=== PATIENT | male | born 1990 | race Caucasian/White ===

== ENCOUNTER 2016-04-27 14:48 | Emergency (ER) | payer OTHER ==
[~2016-04-27] VITALS: Ht 167.6 cm; Wt 90.7 kg
[~2016-04-27 14:48] MED LIST: HYDR-3812 PO
--- OUTSIDE RECORDS SUMMARY | 2016-04-27 14:53 | XMS REPORT | Continuity of Care Document ---
Author Author [facility] Organization [facility] Address Unknown Phone Unavailable Allergies Active Description Code Type Severity Reaction Onset Reported/Identified Relationship to Patient Clinical Status Yes No Known Drug Allergies [id number] Drug Allergy Unknown N/ A 11/29/2014 Medications Problems Date Dx Coded Attending Type Code Diagnosis Diagnosed By 11/29/2014 MALCOLM ZHANG, ASH Stein Ot 592.1 11/29/2014 ASH FOWLER MD Ot 789.09 Procedures Results Encounters ACCT No. Visit Date/Time Discharge Status Pt. Type Provider Facility Loc./Unit Complaint [id number] 11/29/2014 08:47:00 2014 10:27:00 DIS Emergency ASH FOWLER MD [facility] ER
--- NOTE | 2016-04-27 15:21 | ED Integumentary General ---
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 Source: patient Exam Limitations: no limitations History of Present Illness Time seen by provider: 14:59 Initial Comments 26-year-old male patient presents to the emergency department complaints of the allergic reaction. Patient states he was washing dishes at home for approximately 20-25 minutes before he began having itching. Patient soon after noticed he was feeling a lump in his throat. Denies any shortness of air, difficulty swallowing. Feels like his lips are starting to swell. Patient denies changes in the soap, laundry detergent, soap, lotions, foods. Patient drove self here to the ED. Timing/Duration: getting worse, other (45 min [employer]) Location: generalized Possible Cause: no cause identified (possible reaction to dish soap.) Modifying Factors: worse with scratching Associated Symptoms: No blisters, No change in skin texture, No edema, No fever , No flushing, headacheNo nasal congestion, No petechiae, rash sore throatNo swelling/mass/lumps Allergies and Home Medications Allergies Coded Allergies: No Known Drug Allergies (Unverified , 11/29/14) Home Medications Albuterol Sulfate 6.7 Gm Hfa.aer.ad #1 2 PUFF IH Q4H PRN PRN SHORTNESS OF BREATH Prescribed by: THUY TORIBIO on 04/27/161907 Epinephrine 0.3 Mg/0.3 Ml Auto.injct #1 0.3 MG IJ UD PRN PRN SHORTNESS OF BREATH Prescribed by: THUY TORIBIO on 04/27/161907 Famotidine 20 Mg Tablet #30 20 MG PO BID Prescribed by: THUY TORIBIO on 04/27/161907 Prednisone 20 Mg Tab #8 40 MG PO DAILY Prescribed by: THUY TORIBIO on 04/27/161907 Constitutional: No chills, No diaphoresis, No dizziness, No fever, No malaise EENTM: mouth swelling other (swelling of the eye lids.) throat swelling ( feels a lump in his throat.)No ear discharge, No ear pain, No eye pain, No hoarseness, No mouth pain, No nose congestion, No nose pain, No tearing, No throat pain Respiratory: No cough, No short of breath, No stridor, No wheezing Cardiovascular: No chest pain, No palpitations Gastrointestinal: No abdominal pain, No nausea, No vomiting Genitourinary: no symptoms reported Musculoskeletal: no symptoms reported Skin: see HPINo change in color, pruritus rash Psychiatric/Neurological: HeadacheDenies Numbness, Denies Paresthesia, Denies Seizure, Denies Tingling, Denies Weakness All Other Systems Reviewed Negative Unless Noted: Yes (Negative excepted noted.) Past Hhxxmqd-Bhsjrm-Gwxrda Hx Patient Social History Alcohol Use: Rarely Uses Recreational Drug Use: No Smoking Status: Never a Smoker Recent Foreign Travel: No Contact w/Someone Who Travel: No Recent Infectious Disease Expo: No Recent Hopitalizations: No Seasonal Allergies Seasonal Allergies: No Surgeries HX Surgeries: Yes (PLASTIC SURG AGE 1) Respiratory Hx Respiratory Disorders: No Cardiovascular Hx Cardiac Disorders: Yes Cardiac Disorders: Hypertension Neurological Hx Neurological Disorders: No Genitourinary Hx Genitourinary Disorders: Yes Genitourinary Disorders: Kidney Stones Gastrointestinal Hx Gastrointestinal Disorders: No Musculoskeletal Hx Musculoskeletal Disorders: No Endocrine Hx Endocrine Disorders: No HEENT HX ENT Disorders: No Cancer Hx Cancer: No Psychosocial Hx Psychiatric Problems: No Integumentary HX Skin/Integumentary Disorder: No Blood Transfusions Hx Blood Disorders: No Reviewed Nursing Assessment Reviewed/Agree w Nursing PMH: Yes Family Medical History Significant Family History: No Pertinent Family Hx Physical Exam Vital Signs Vital Sign - Last 12Hours 04/27/16 14:56 Temp 97.4 Pulse 126 Resp 18 B/P 116/88 Pulse Ox 95 Capillary Refill : Less Than 3 Seconds General Appearance: WD/WN other (Patient initially not in distress, however within 3-5 minutes patient became very dizzy, pale, and in distress.) HEENT: PERRL/EOMI TMs normal pharynx normal (no evidence of pharyngeal or tongue swelling.) other (hives/ rash of the face with swelling of the eye lids and lips.) Neck: non-tender full range of motion supple other (hives noted.) Cardiovascular: no edema no murmur tachycardia other (peripheral pulses thready.) Respiratory: lungs clear normal breath sounds no respiratory distress other ( urticarial rash of the chest noted.) Gastrointestinal: normal bowel sounds non tender softNo distended, other ( urticarial rash noted of the abdomen.) Back: other (urticarial rash.) Extremities: non-tender normal capillary refill other (generalized urticarial rash of all extremities) 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 no motor/sensory deficits alert oriented x 3 other (anxious) Skin: warm/dry rash Skin Problem Location: generalized Skin Problem Character: erythema, rash, swelling (swelling of the bilateral eyelids and lips), urticarial Progress/Results/Core Measures Results/Orders My Orders Orders-THUY TORIBIO Diphenhydramine Injection (Benadryl Inje (04/27/16 16:30) Methylprednisolone Sod Succ (Solu-Medrol (04/27/16 16:30) Famotidine Injection (Pepcid Injection) (04/27/16 16:30) Epinephrine 1 Mg Injection (Adrenalin I (04/27/16 16:30) Prednisone Tablet (Deltasone Tablet) (04/27/16 19:15) Medications Given in ED Current Medications Medications Dose Ordered Sig/Fili Route Start Time Stop Time Status Last Admin Dose Admin Diphenhydramine HCl 50 mg ONCE ONCE IV 04/27/16 16:30 04/27/16 16:31 DC 04/27/16 14:50 50 MG Epinephrine HCl 0.3 mg ONCE ONCE IM 04/27/16 16:30 04/27/16 16:31 DC 04/27/16 14:50 0.3 MG Famotidine 20 mg ONCE ONCE IVP 04/27/16 16:30 04/27/16 16:31 DC 04/27/16 14:50 20 MG Methylprednisolone Sodium Succinate 125 mg ONCE ONCE IVP 04/27/16 16:30 04/27/16 16:31 DC 04/27/16 14:50 125 MG Prednisone 40 mg ONCE ONCE PO 04/27/16 19:15 04/27/16 19:17 DC 04/27/16 19:20 40 MG Vital Signs/I&O Vital Sign - Last 12Hours 04/27/16 04/27/16 14:56 19:22 Temp 97.4 97.4 Pulse 126 86 Resp 18 18 B/P 116/88 Pulse Ox 95 97 Blood Pressure Mean: 97 Departure Communication Progress Notes Patient seen and evaluated. During the initial exam patient was noted to have increased heart rate and SaO2 noted to be trending down to 90 percent. Patient was given Benadryl, Pepcid, Solu-Medrol, and epinephrine. Patient quickly showed improvement in rash, heart rate, and SaO2. Patient was monitored and re- evaluated frequently throughout the visit with continued improvement in all symptoms. Patient was observed for 4 hours. Patient at the time of pending sale to [facility] denies any shortness of air, difficulty swallowing, swelling, or rash. Reports headache is completely resolved. Patient is alert and oriented 3, no acute distress. Lungs clear to auscultation, cardiovascular regular rate and rhythm. Proceed with discharge to home as patient shown no recurrent symptoms. All return precautions were discussed with the patient as described in the discharge instructions of this report. Patient voices understanding and agrees with the treatment plan. Patient case was discussed with Dr. Méndez, he agrees with the plan of care. Impression Impression: Primary Impression: Anaphylactic reaction Qualified Code: T78.2XXA - Anaphylactic shock, unspecified, initial encounter Disposition: HOME, SELF-CARE Condition: Improved Departure-Patient Inst. Decision time for Depature: 19:02 Referrals: NO,LOCAL PHYSICIAN (PCP/Family) Primary Care Physician Patient Instructions: Anaphylaxis (DC) Add. Discharge Instructions: All discharge instructions reviewed with patient and/or family. Voiced understanding. medications as instructed. Zyrtec, Claritin, or Neeta zhdq-cpp-nvkbvon as directed for symptoms. Benadryl thwg-syx-cpimjzd for breakthrough symptoms. Avoid using the soap. Follow-up with your family practitioner for recheck this week, call tomorrow morning for appointment time. Return to the emergency department immediately for worsened shortness of air, swelling, rash, numbness, weakness, headache, vomiting, swelling of the face/ lips/tongue/throat, difficulty swallowing, or any other concerns. Scripts Epinephrine (Epipen 2-Dario)0.3 Mg/0.3 Ml Auto.injct0.3 Mg IJ UD PRN SHORTNESS OF BREATH #1 PACKET Ref 1 Prov:THUY TORIBIO 04/27/16 Famotidine (Pepcid)20 Mg Aqxzsu51 Mg PO BID #30 TAB Ref 0 Prov:THUY TORIBIO 04/27/16 Albuterol Sulfate (Proventil Hfa)6.7 Gm Hfa.aer.ad2 Puff IH Q4H PRN SHORTNESS OF BREATH #1 EACH Prov:THUY TORIBIO 04/27/16 Prednisone 20 Mg Tab40 Mg PO DAILY #8 TAB Ref 0 Prov:THUY TORIBIO 04/27/16 Work/School Note: Local Medical Staff Listing, Work Release Form Date Seen in the Emergency Department: Apr 27, 2016 Return to Work: Apr 29, 2016 THUY TORIBIO Apr 27, 2016 15:21
[2016-04-27] MEDS ORDERED: methylPREDNISolone 125 MG (Solu-MEDROL) VIAL IVP ONE (16:30)
[2016-04-27] MEDS ORDERED: EPINEPHrine INJECTION 1 MG/ML AMP IM ONE (16:30)
[2016-04-27] MEDS ORDERED: FAMOTIDINE 20MG/2ML IV (PEPCID) IVP ONE (16:30)
[2016-04-27] MEDS ORDERED: diphenhydrAMINE 50 MG/ML INJ (BENADRYL) IV ONE (16:30)
[2016-04-27] MEDS ORDERED: RT-ALBUINH IH (19:08)
[2016-04-27] MEDS ORDERED: PRD20T PO (19:08)
[2016-04-27] MEDS ORDERED: FAMO-119 PO (19:08)
[2016-04-27] MEDS ORDERED: EPIN0.3P3 IJ (19:08)
[2016-04-27] MEDS ORDERED: predniSONE 20 MG TAB PO ONE (19:15)
[2016-04-27 19:22] VITALS: BP 123/76
== END 2016-04-27 19:22 | disposition home or self-care (01) ==
LOC: EDUNIT# 14:48 → ER 14:50
DX: T78.2XXA Anaphylactic shock, unspecified, initial encounter (principal)
CPT/HCPCS: 96372; 96374; 96375

== ENCOUNTER 2019-10-24 21:15 | Emergency (ER) | payer OTHER ==
[~2019-10-24] VITALS: Ht 167.7 cm; Wt 95.2 kg
[~2019-10-24 21:15] MED LIST changes: +ACHD5005 PO; +EPIN0.3P3 IJ; +FAMO-119 PO; -HYDR-3812 PO; +PRD20T PO; +RT-ALBUINH IH
--- NOTE | 2019-10-24 21:36 | ED Back Pain ---
General Chief Complaint: Back Problems Stated Complaint: L SIDE LOWER BACK PAIN Source of Information: Patient Exam Limitations: No Limitations History of Present Illness Date Seen by Provider: Oct 24, 2019 Time Seen by Provider: 21:35 Initial Comments To ER with left flank pain 2 days. Suspected kidney stone as he's had these before and this feels similar. No fever no chills. The pain radiates to the left testicle. He was seen at [facility] urgent care on Thursday at the onset of this illness and given a shot of Toradol. He felt better yesterday. Location: Other Timing/Duration: 1-2 Days Severity: Moderate Associated Symptoms: lower back pain Allergies and Home Medications Allergies Coded Allergies: No Known Drug Allergies (Unverified , 11/29/14) Home Medications Epinephrine 0.3 Mg/0.3 Ml Auto.injct, 0.3 MG IJ UD PRN for SHORTNESS OF BREATH Prescribed by: THUY TORIBIO on 04/27/161907 Famotidine 20 Mg Tablet, 20 MG PO BID Prescribed by: THUY TORIBIO on 04/27/161907 Prednisone 20 Mg Tab, 40 MG PO DAILY Prescribed by: THUY TORIBIO on 04/27/161907 Patient Home Medication List Home Medication List Reviewed: Yes Review of Systems Constitutional: see HPI EENTM: see HPI Respiratory: no symptoms reported Cardiovascular: no symptoms reported Genitourinary: see HPI Musculoskeletal: no symptoms reported Skin: no symptoms reported Psychiatric/Neurological: No Symptoms Reported Past Tixdvor-Uncocx-Mdynhc Hx Patient Social History Recent Foreign Travel: No Contact w/Someone Who Travel: No Recent Hopitalizations: No Seasonal Allergies Seasonal Allergies: No Past Medical History Hypertension Kidney Stones Family Medical History No Pertinent Family Hx Physical Exam Vital Signs Vital Signs - First Documented 10/24/19 21:25 Temp 36.2 Pulse 81 Resp 18 B/P (MAP) 139/90 (106) Pulse Ox 96 O2 Delivery Room Air Capillary Refill : Height, Weight, BMI Height: 5'6" Weight: 200lbs. oz. 90.342765tz; 32.28 BMI Method:Stated General Appearance: WD/WN, Mild Distress Neck: Full Range of Motion, Normal Inspection Respiratory: No Accessory Muscle Use, No Respiratory Distress Gastrointestinal: Normal Bowel Sounds, Non Tender, Soft Extremity: Normal Capillary Refill, Normal Inspection Neurologic/Psychiatric: Alert, Oriented x3 Skin: Normal Color, Warm/Dry Progress/Results/Core Measures Results/Orders Lab Results Laboratory Tests Test 10/24/19 21:22 Range/Units White Blood Count 9.4 4.3-11.0 10^3/uL Red Blood Count 5.02 4.35-5.85 10^6/uL Hemoglobin 15.3 13.3-17.7 G/DL Hematocrit 43 40-54 % Mean Corpuscular Volume 86 80-99 FL Mean Corpuscular Hemoglobin 31 25-34 PG Mean Corpuscular Hemoglobin Concent 36 32-36 G/DL Red Cell Distribution Width 13.5 10.0-14.5 % Platelet Count 232 130-400 10^3/uL Mean Platelet Volume 9.8 7.4-10.4 FL Neutrophils (%) (Auto) 40 L 42-75 % Lymphocytes (%) (Auto) 48 H 12-44 % Monocytes (%) (Auto) 10 0-12 % Eosinophils (%) (Auto) 2 0-10 % Basophils (%) (Auto) 0 0-10 % Neutrophils # (Auto) 3.7 1.8-7.8 X 10^3 Lymphocytes # (Auto) 4.5 H 1.0-4.0 X 10^3 Monocytes # (Auto) 0.9 0.0-1.0 X 10^3 Eosinophils # (Auto) 0.2 0.0-0.3 10^3/uL Basophils # (Auto) 0.0 0.0-0.1 10^3/uL Urine Color YELLOW Urine Clarity CLEAR Urine pH 6.0 5-9 Urine Specific [place] 1.025 H 1.016-1.022 Urine Protein NEGATIVE NEGATIVE Urine Glucose (UA) NEGATIVE NEGATIVE Urine Ketones NEGATIVE NEGATIVE Urine Nitrite NEGATIVE NEGATIVE Urine Bilirubin NEGATIVE NEGATIVE Urine Urobilinogen 0.2 < = 1.0 MG/DL Urine Leukocyte Esterase TRACE H NEGATIVE Urine RBC (Auto) 3+ H NEGATIVE Urine RBC 50-100 H /HPF Urine WBC 2-5 /HPF Urine Crystals NONE /LPF Urine Bacteria TRACE /HPF Urine Casts NONE /LPF Urine Mucus NEGATIVE /LPF Urine Culture Indicated NO Sodium Level 139 135-145 MMOL/L Potassium Level 4.1 3.6-5.0 MMOL/L Chloride Level 109 H 98-107 MMOL/L Carbon Dioxide Level 20 L 21-32 MMOL/L Anion Gap 10 5-14 MMOL/L Blood Urea Nitrogen 16 7-18 MG/DL Creatinine 0.95 0.60-1.30 MG/DL Estimat Glomerular Filtration Rate > 60 BUN/Creatinine Ratio 17 Glucose Level 103 70-105 MG/DL Calcium Level 9.5 8.5-10.1 MG/DL My Orders Orders - RYAN WATSON SENIOR 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[employer]ICAL DESIGN ENGINEER Cbc With Automated Diff (10/24/19 21:31) Basic Metabolic Panel (10/24/19 21:31) Ua Culture If Indicated (10/24/19 21:31) Abdomen/Kub 1view (10/24/19 21:31) Ct Abd/Pelvis Wo(Kidney Stone) (10/24/19 21:31) Ed Iv/Invasive Line Start (10/24/19 21:31) Ns Iv 1000 Ml (Sodium Chloride 0.9%) (10/24/19 21:45) Ketorolac Injection (Toradol Injection) (10/24/19 21:45) Fentanyl Injection (Sublimaze Injection (10/24/19 21:45) Rx-Hydrocodone/Apap 5-325 Mg (Rx-Vicodin (10/24/19 22:15) Medications Given in ED Current Medications Medications Dose Ordered Sig/Fili Route Start Time Stop Time Status Last Admin Dose Admin Fentanyl Citrate 50 mcg ONCE ONCE IVP 10/24/19 21:45 10/24/19 21:46 DC 10/24/19 21:42 50 MCG Ketorolac Tromethamine 15 mg ONCE ONCE IVP 10/24/19 21:45 10/24/19 21:46 DC 10/24/19 21:42 15 MG Vital Signs/I&O 10/24/19 21:25 Temp 36.2 Pulse 81 Resp 18 B/P (MAP) 139/90 (106) Pulse Ox 96 O2 Delivery Room Air Departure Impression Primary Impression: Left ureteral stone Disposition: HOME, SELF-CARE Condition: Stable Departure-Patient Inst. Decision time for Depature: 22:05 Referrals: NO,LOCAL PHYSICIAN (PCP) Primary Care Physician KIARRA GONZALEZ MD Patient Instructions: Kidney Stones in Adults Add. Discharge Instructions: 1. Follow-up with Dr. Gonzalez. Return to ER for any concerns such as fevers or intolerable pain. Take the pain medication as prescribed in addition to ibuprofen every 8 hours. Increase your fluid intake. All discharge instructions reviewed with patient and/or family. Voiced understanding. Scripts Sulfamethoxazole/Trimethoprim (Bactrim Ds Tablet) 1 Each Tablet 1 EACH PO BID PRN for PAIN-MODERATE (5-7), #10 TAB Prov: RYAN WATSON APRN 10/24/19 Work/School Note: Work Release Form Date Seen in the Emergency Department: Oct 24, 2019 Return to Work: Oct 26, 2019 RYAN WATSON APRN Oct 24, 2019 21:36
[2019-10-24 21:37] LABS: BILIRUBIN,URINE NEGATIVE (NEGATIVE); CLARITY,URINE CLEAR; COLOR,URINE YELLOW; GLUCOSE, URINE (UA) NEGATIVE (NEGATIVE); KETONES,URINE NEGATIVE (NEGATIVE); LEUKOCYTE ESTERASE ,URINE TRACE (NEGATIVE); NITRITE,URINE NEGATIVE (NEGATIVE); PROTEIN,URINE NEGATIVE (NEGATIVE)
[2019-10-24 21:39] LABS: BASOPHILS % (AUTO) 0 % (0-10); EOSINOPHILS # (AUTO) 0.2 10^3/uL (0.0-0.3); EOSINOPHILS % (AUTO) 2 % (0-10); HEMATOCRIT 43 % (40-54); HEMOGLOBIN 15.3 G/DL (13.3-17.7); LYMPHOCYTES # (AUTO) 4.5 X 10^3 (1.0-4.0); LYMPHOCYTES % (AUTO) 48 % (12-44); MEAN CORPUSCULAR HEMOGLOBIN 31 PG (25-34); MEAN CORPUSCULAR HGB CONC 36 G/DL (32-36); MEAN CORPUSCULAR VOLUME 86 FL (80-99); MEAN PLATELET VOLUME 9.8 FL (7.4-10.4); MONOCYTES # (AUTO) 0.9 X 10^3 (0.0-1.0); MONOCYTES % (AUTO) 10 % (0-12); NEUTROPHILS # (AUTO) 3.7 X 10^3 (1.8-7.8); NEUTROPHILS % (AUTO) 40 % (42-75); PLATELET COUNT 232 10^3/uL (130-400); RED CELL DISTRIBUTION WIDTH 13.5 % (10.0-14.5); WHITE BLOOD COUNT 9.4 10^3/uL (4.3-11.0)
[2019-10-24] MEDS ORDERED: fentaNYL INJECTION 100 MCG/2 ML AMP IVP ONE (21:45)
[2019-10-24] MEDS ORDERED: KETOROLAC 30 MG/ML VIAL IVP ONE (21:45)
[2019-10-24] MEDS ORDERED: NS IV 1000 ML 1,000 ML IV SCH (21:45)
[2019-10-24 21:55] LABS: BUN/CREATININE RATIO 17; CALCIUM 9.5 MG/DL (8.5-10.1); CARBON DIOXIDE 20 MMOL/L (21-32); CHLORIDE 109 MMOL/L (98-107); CREATININE SERUM 0.95 MG/DL (0.60-1.30); GFR ESTIMATED > 60; GLUCOSE 103 MG/DL (70-105); POTASSIUM 4.1 MMOL/L (3.6-5.0); SODIUM 139 MMOL/L (135-145)
[2019-10-24 21:59] LABS: RBC,URINE 50-100 /HPF
[2019-10-24 22:00] LABS: BACTERIA,URINE TRACE /HPF
[2019-10-24] MEDS ORDERED: SULF1TAB35 PO (22:08)
[2019-10-24] MEDS ORDERED: HYDR-3870 PO (22:08)
[2019-10-24] MEDS ORDERED: RX-ONDANSETRON 4 MG ODT (ZOFRAN) PPK #4 PO STA (22:10)
[2019-10-24] MEDS ORDERED: TAMSULOSIN 0.4 MG (FLOMAX) CAP PO SCH (22:15)
[2019-10-24] MEDS ORDERED: RX-HYDROCODONE/APAP 5/325 MG #4 TAB PK PO PRN (22:15)
[2019-10-24 22:41] VITALS: BP 130/86
--- NOTE | 2019-10-25 07:34 | Diagnostic Imaging Report ---
INDICATION: Left flank pain. TECHNIQUE: Single supine view of the abdomen 9:54 PM CORRELATION STUDY: Renal colic CT 10/24/2019 FINDINGS: Patient is with known small calcination at the left UVJ. Less well appreciated on radiograph. Bowel gas pattern with derm-ob-abqobpyg severity fecal retention. Osseous structures are unremarkable. IMPRESSION: 1. The known left UVJ calcification is not well appreciated on this examination. Dictated by: Dictated on workstation # [id number]
--- NOTE | 2019-10-25 07:42 | Diagnostic Imaging Report ---
PROCEDURE: CT urinary tract, rule out kidney stone. TECHNIQUE: Multiple contiguous axial images were obtained through the abdomen and pelvis without the use of intravenous contrast. Auto Exposure Controls were utilized during the CT exam to meet ALARA standards for radiation dose reduction. INDICATION: Left flank pain. CORRELATION STUDY: 11/29/2014 FINDINGS: LOWER THORAX: Question of small 3 mm pulmonary nodule lingula. LIVER: Unremarkable. GALLBLADDER: Present and unremarkable. No bile duct dilatation. SPLEEN: Unremarkable. PANCREAS: Unremarkable. ADRENAL GLANDS: Unremarkable. KIDNEYS: Mild left-sided hydroureteronephrosis is present secondary to a 3 mm obstructing left vesicoureteral junction stone. Punctate nonobstructing right renal stones. Likely small left renal cyst but cannot be fully evaluated owing to lack of contrast. ABDOMINAL AORTA: Unremarkable, nonaneurysmal. GASTROINTESTINAL TRACT: No obstruction or inflammation. Normal appendix. URINARY BLADDER: Unremarkable. REPRODUCTIVE: Prostate gland unremarkable. OSSEOUS STRUCTURES: No acute abnormality. OTHER: Small fat-containing right inguinal hernia. IMPRESSION: 1. A 3 mm obstructing left vesicoureteral junction stone results in mild hydroureteronephrosis. 2. Punctate nonobstructing right renal stones. 3. Suspect 3 mm pulmonary nodule lingula. A preliminary report was provided by [employer]. Dictated by: Dictated on workstation # [id number]
== END 2019-10-24 22:41 | disposition home or self-care (01) ==
LOC: EDUNIT# 21:15 → ER 21:16
DX: N13.2 Hydronephrosis with renal and ureteral calculous obstruction (principal); Z79.52 Long term (current) use of systemic steroids; Z82.49 Family history of ischemic heart disease and other diseases of the circulatory system
CPT/HCPCS: 36415; 74018; 74176; 80048; 81000; 85025

== ENCOUNTER 2021-09-24 20:56 | Emergency (ER) | payer OTHER ==
[~2021-09-24] VITALS: Ht 172.7 cm; Wt 100.0 kg
[~2021-09-24 20:56] MED LIST changes: +HYDR-3870 PO; +SULF1TAB38 PO
[2021-09-24] MEDS ORDERED: ACHD5005 PO (21:44)
[2021-09-24] MEDS ORDERED: INDO50CA82 PO (21:44)
[2021-09-24] MEDS ORDERED: PRD20T PO (21:44)
--- NOTE | 2021-09-24 21:44 | ED Lower Extremity ---
General Chief Complaint: Lower Extremity Stated Complaint: ANKLE PAIN Nursing Triage Note: PT AMBULATORY WITH LIMP INTO ER WITH COMPLAINT OF NON TRAUMATIC RIGHT ANKLE PAIN. PT STATES THAT PAIN STARTED AT 0300 THIS AM. PT HAS HAD THIS HAPPEN BEFORE, BUT THIS IS MUCH WORSE. PT DENIES HISTORY OF GOUT. Source: patient Exam Limitations: no limitations History of Present Illness Date Seen by Provider: Sep 24, 2021 Time Seen by Provider: 21:46 Initial Comments Patient is a 31-year-old male who presents to ED for right ankle pain and swelling. Started yesterday evening with pain and swelling with some mild redness. Took ibuprofen with very minimal improvement. Worsening pain throughout the day with increased swelling. Denies of any specific injury. 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 History of similar symptoms the past improved with ibuprofen. He states this is the worst. Patient denies excessive alcohol use. Not currently on any lisinopril or losartan for his blood pressure. Denies any drug use. No fever, chills, body aches or similar type pain in his other joints. Denies any urinary symptoms. Reports previous injury as a kid. Allergies and Home Medications Allergies Coded Allergies: No Known Drug Allergies (Unverified , 11/29/14) Patient Home Medication List Home Medication List Reviewed: Yes Epinephrine (Epipen 2-Dario) 0.3 Mg/0.3 Ml Auto.injct, 0.3 MG IJ UD PRN for SHORTNESS OF BREATH Prescribed by: THUY TORIBIO on 04/27/161907 Famotidine (Pepcid) 20 Mg Tablet, 20 MG PO BID Prescribed by: THUY TORIBIO on 04/27/161907 Hydrocodone/Acetaminophen (Lorcet 5-325 mg Tablet) 1 Each Tablet, 1 EACH PO Q4- 6HR PRN for PAIN-MODERATE Prescribed by: RYAN WATSON on 10/24/192207 Hydrocodone/Acetaminophen (Hydrocodone-Acetamin 5-325 mg) 5 Mg-325 Mg Tablet, 1 TAB PO Q4H PRN for PAIN-MODERATE (5-7) Prescribed by: RUTH OMRAN on 09/24/212143 Indomethacin (Indomethacin) 50 Mg Capsule, 50 MG PO TID Prescribed by: RUTH MORAN on 09/24/212143 Prednisone (Prednisone) 20 Mg Tab, 40 MG PO DAILY Prescribed by: THUY TORIBIO on 04/27/16 190 Prednisone (Prednisone) 20 Mg Tab, 40 MG PO DAILY Prescribed by: RUTH MOARN on 09/24/212143 Sulfamethoxazole/Trimethoprim (Bactrim Ds Tablet) 1 Each Tablet, 1 EACH PO BID PRN for PAIN-MODERATE (5-7) Prescribed by: RYAN WATSON on 10/24/192207 Review of Systems Constitutional: No chills, No diaphoresis, No malaise, No weakness EENTM: No hearing loss, No blurred vision, No double vision Respiratory: No cough, No dyspnea on exertion Cardiovascular: No chest pain, No edema Gastrointestinal: No abdominal pain, No diarrhea, No nausea, No vomiting Genitourinary: No decreased output, No discharge Musculoskeletal: No back pain; joint pain, joint swelling Skin: No change in color, No change in hair/nails All Other Systems Reviewed Negative Unless Noted: Yes Past Yqrfnlk-Fjgcse-Tdkaby Hx Patient Social History Tobacco Use?: Yes Smokeless Tobacco Frequency: Current Everyday User Use of E-Cig and/or Vaping dev: No Substance use?: No Alcohol Use?: No Pt feels they are or have been: No Immunizations Up To Date Tetanus Booster (TDap): Unknown PED Vaccines UTD: Yes Influenza Vaccine Up-to-Date: No; Not Current Second COVID19 Vaccination Prem: 2020 COVID19 Vaccine Quilt Maker: TINA Seasonal Allergies Seasonal Allergies: No Past Medical History Surgeries: Yes (PLASTIC SURG AGE 1) Respiratory: No Cardiac: Yes Hypertension Neurological: No Kidney Stones Gastrointestinal: No Musculoskeletal: No Endocrine: No Cancer: No Psychosocial: No Integumentary: No Blood Disorders: No Family Medical History No Pertinent Family Hx Physical Exam Vital Signs Vital Signs - First Documented 09/24/21 21:23 Temp 36.4 Pulse 91 Resp 16 B/P (MAP) 148/108 (121) Pulse Ox 97 O2 Delivery Room Air Capillary Refill : Less Than 3 Seconds Height, Weight, BMI Height: 5'6" Weight: 200lbs. oz. 90.387672cn; 33.00 BMI Method:Stated General Appearance: WD/WN, no apparent distress HEENT: PERRL/EOMI, normal ENT inspection, TMs normal, pharynx normal Neck: non-tender, full range of motion, supple Cardiovascular: regular rate, rhythm, no edema, no gallop, no JVD Respiratory: chest non-tender, lungs clear, normal breath sounds, no respiratory distress, no accessory muscle use Gastrointestinal: normal bowel sounds, non tender, soft, no organomegaly Back: normal inspection, no CVA tenderness, no vertebral tenderness Ankles: right ankle pain, right ankle soft tissue tenderness, right ankle swelling (Right lateral ankle and medial ankle swelling. No significant warmth or erythema) Feet: bilateral foot non-tender, bilateral foot normal range of motion, bilateral foot no evidence of injury Neurologic/Tendon: normal sensation, normal motor functions Neurologic/Psychiatric: manager switch II-XII nml as tested, no motor/sensory deficits, alert, normal mood/affect, oriented x 3 Skin: normal color, warm/dry Progress/Results/Core Measures Results/Orders My Orders Orders - MISTY VELAZQUEZ Prednisone Tablet (Deltasone Tablet) (09/24/21 21:45) Hydrocodone/Apap 5/325 Tablet (Lortab 5 (09/24/21 21:45) Ketorolac Injection (Toradol Injection) (09/24/21 21:45) Medications Given in ED Current Medications Medications Dose Ordered Sig/Fili Route Start Time Stop Time Status Last Admin Dose Admin Acetaminophen/ Hydrocodone Bitart 1 ea ONCE ONCE PO 09/24/21 21:45 09/24/21 21:46 DC 09/24/21 21:49 1 EA Ketorolac Tromethamine 30 mg ONCE ONCE IM 09/24/21 21:45 09/24/21 21:46 DC 09/24/21 21:49 30 MG Prednisone 50 mg ONCE ONCE PO 09/24/21 21:45 09/24/21 21:46 DC 09/24/21 21:49 50 MG Vital Signs/I&O 09/24/21 21:23 Temp 36.4 Pulse 91 Resp 16 B/P (MAP) 148/108 (121) Pulse Ox 97 O2 Delivery Room Air Blood Pressure Mean: 121 Departure Communication (PCP) Does not appear to be a septic joint. Does have adequate movement. No area of inoculation. Concerning for gout. With similar symptoms in the past. No significant injury with disruption of the joint. No specific injury. Afebrile. No similar joint with other swelling. Patient appears in no acute distress. Was given dose of Toradol, prednisone and hydrocodone. Initially concern for gout. He states he does walk on his job. Swelling may be result of an injury. Discussed with patient to get a correct diagnosis will need arthrocentesis which she does not want to do at this time. Discussed with patient treatment is very similar to sprain ankle. Discussed with patient this does not appear ce llulitic. Recommend conservative treatment with medication. Will discharge with indomethacin and prednisone. Recommend ice and elevate. Provided work note. If any worsening symptoms return back to ED. May need further evaluation with x-ray as well. He refused imaging at this time. No lab work was drawn. He states he does eat a lot of red meats. Impression Primary Impression: Ankle swelling Disposition: HOME, SELF-CARE Condition: Stable Departure-Patient Inst. Decision time for Depature: 21:41 Referrals: NO,LOCAL PHYSICIAN (PCP) Primary Care Physician TAMMY BEATTY MD Patient Instructions: Swollen Joints Scripts Hydrocodone/Acetaminophen (Hydrocodone-Acetamin 5-325 mg) 5 Mg-325 Mg Tablet 1 TAB PO Q4H PRN for PAIN-MODERATE (5-7), #6 TAB Prov: MISTY VELAZQUEZ 09/24/21 Indomethacin (Indomethacin) 50 Mg Capsule 50 MG PO TID for 5 Days, #15 CAP Prov: MISTY VELAZQUEZ 09/24/21 Prednisone (Prednisone) 20 Mg Tab 40 MG PO DAILY for 4 Days, #8 TAB Prov: MISTY VELAZQUEZ 09/24/21 MISTY VELAZQUEZ Sep 24, 2021 21:44
[2021-09-24] MEDS ORDERED: KETOROLAC 30 MG/ML VIAL IM ONE (21:45)
[2021-09-24] MEDS ORDERED: HYDROcodone/APAP 5 MG/325 MG (LORTAB) TAB PO ONE (21:45)
[2021-09-24] MEDS ORDERED: predniSONE 20 MG TAB PO ONE (21:45)
[2021-09-24 21:53] VITALS: BP 127/87
== END 2021-09-24 21:52 | disposition home or self-care (01) ==
LOC: EDUNIT# 20:56 → ER 20:57
DX: M25.471 Effusion, right ankle (principal); I10 Essential (primary) hypertension; F17.220 Nicotine dependence, chewing tobacco, uncomplicated
CPT/HCPCS: 99284

== ENCOUNTER → 2022-01-03 | Outpatient (CLI) | payer OTHER ==
[~2022-01-03] MED LIST changes: +INDO50CA82 PO
--- NOTE | 2022-01-03 16:35 | Diagnostic Imaging Report ---
PROCEDURE: US Scrotum. TECHNIQUE: Multiple real-time grayscale images were obtained over the scrotum in various projections bilaterally. INDICATION: Left-sided varicocele. FINDINGS: Right testicle measures 3.8 x 2.0 x 2.4 cm and left testicle measures 3.6 x 1.7 x 2.7 cm. Both testes show homogeneous echotexture. No discrete testicular mass is detected. Epididymides are unremarkable bilaterally. There is a very small left hydrocele. There are also bilateral varicoceles. IMPRESSION: 1. No evidence of testicular mass or vascular compromise. 2. Small left hydrocele. 3.Bilateral varicoceles, larger on the left. Dictated on workstation # [id number]
== END ==
LOC: RAD 13:17
PROVIDERS: ATTEND Urology
DX: I86.1 Scrotal varices (principal)
CPT/HCPCS: 76870